=== PATIENT | female | born 1945 | race Caucasian/White ===

== ENCOUNTER 2016-05-31 14:43 | Emergency (ER) | payer MEDICARE ==
[~2016-05-31 14:43] MED LIST: HYDR-2666 PO
[2016-05-31] MEDS ORDERED: IV NORMAL SALINE 1000ML BAG 1,000 ML IV SCH (16:01)
--- NOTE | 2016-05-31 16:04 | EKG ---
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
[2016-05-31] MEDS ORDERED: MORPHINE SULFATE 4 MG/ML DISP.SYRIN. IV ONE (16:15)
--- NOTE | 2016-05-31 16:26 | RAD ---
Chest, 2 views, 05/31/2016: History: Chest pain and cough Comparison is made to a study from 02/23/2017. The heart size and pulmonary vascularity are normal. There is a calcified granuloma in the right lung. No acute infiltrates are seen. There is no evidence of pleural fluid. Mild spurring is present in the spine. IMPRESSION: No acute cardiopulmonary abnormality is detected.
[2016-05-31 16:35] LABS: BASO % 0 % (0-3); EOS % 0 % (0-3); HEMATOCRIT 39.2 % (36.0-47.0); HEMOGLOBIN 12.7 g/dL (12.0-15.5); LYMPH # 1.7 x10^3/uL (1.0-4.8); LYMPH % 46 % (24-48); MEAN CORPUSCULAR HEMOGLOBIN 27 pg (25-35); MEAN CORPUSCULAR HGB CONC 32 g/dL (31-37); MEAN CORPUSCULAR VOLUME 83 fL (79-100); MONO % 8 % (0-9); NEUT % 46 % (31-73); PLATELET COUNT 106 x10^3/uL (140-400); RED BLOOD COUNT 4.72 x10^6/uL (3.50-5.40); RED CELL DISTRIBUTION WIDTH 14.7 % (11.5-14.5); WHITE BLOOD COUNT 3.8 x10^3/uL (4.0-11.0)
[2016-05-31 16:51] LABS: CALCIUM 8.7 mg/dL (8.5-10.1); CREATININE 0.7 mg/dL (0.6-1.0); GFR 83.2; POTASSIUM 4.2 mmol/L (3.5-5.1)
[2016-05-31 17:00] VITALS: BP 124/60
[2016-05-31 17:24] LABS: OBC FLU VALID
[2016-05-31] MEDS ORDERED: OSELTAMIVIR 75 MG CAPSULE PO ONE (17:48)
--- NOTE | 2016-05-31 17:57 | PHYS DOC ---
Past Medical History Past Medical History: Arthritis Additional Past Medical Histor: DVT,RA Past Surgical History: Other Additional Past Surgical Histo: Macular hole repair 06/2013 Alcohol Use: None Drug Use: None Adult General Chief Complaint Chief Complaint: CHEST PAIN HPI HPI Patient is a 70 year old female who presents with cold symptoms. Patient reports she has had symptoms since Monday. She describes cough, chest congestion , general myalgias, rhinorrhea, chills, headache, decreased appetite. She also reports discomfort in her chest that she describes as "hard" pain that waxes and wanes. This pain is worse with coughing. She has tried oxycodone at home with insufficient relief. Of note, patient has history of RA for which she takes Enbrel. Review of Systems Review of Systems Constitutional: Chills Eyes: Denies change in visual acuity or eye pain HENT: Congestion, rhinorrhea Respiratory: Cough, congestion. Denies SOB Cardiovascular: Waxing and waning chest discomfort GI: Denies abdominal pain, nausea, vomiting, bloody stools or diarrhea : Denies dysuria or hematuria Musculoskeletal: General myalgias Integument: Denies rash or skin lesions Neurologic: Mild headache. Denies focal weakness or sensory changes Current Medications Current Medications Current Medications Medications (Trade) Dose Ordered Sig/Mel Start Time Stop Time Status Last Admin Dose Admin Morphine Sulfate 4 mg 1X ONCE 05/31/16 16:15 05/31/16 16:16 DC 05/31/16 16:22 4 MG Oseltamivir Phosphate (Tamiflu) 75 mg 1X ONCE 05/31/16 17:48 05/31/16 17:50 DC 05/31/16 17:48 75 MG Sodium Chloride (Iv Sodium Chloride 0.9% 1000ml Bag) 1,000 ml @ 1,000 mls/hr Q1H 05/31/16 16:01 05/31/16 17:00 DC 05/31/16 16:22 1,000 MLS/HR Allergies Allergies Allergies Coded Allergies Type Severity Reaction Last Updated Verified codeine Allergy Intermediate pain in neck "going up my head" 08/06/14 No warfarin Allergy Intermediate "rash" 08/06/14 No Physical Exam Physical Exam Constitutional: Well developed, well nourished, non-toxic appearance HENT: Normocephalic, atraumatic, bilateral external ears normal Eyes: EOMI, conjunctiva normal, no discharge Neck: Normal range of motion, no stridor Cardiovascular: Tachycardia, regular rhythm, no murmur Lungs & Thorax: Bilateral breath sounds clear to auscultation Abdomen: Bowel sounds normal, soft, non-distended, no TTP Skin: Hot to touch, dry, no erythema, no rash Extremities: No obvious deformity, no edema Neurologic: Alert and oriented X 3, no gross deficits noted Current Patient Data Vital Signs Vital Signs Date Time Temp Pulse Resp B/P Pulse Ox O2 Delivery O2 Flow Rate FiO2 05/31/16 17:00 84 124/60 96 Room Air 05/31/16 16:22 18 05/31/16 15:41 98.4 98.4 Lab Values Laboratory Tests Test 05/31/16 16:28 05/31/16 16:30 White Blood Count 3.8x10^3/uL (4.0-11.0) L Red Blood Count 4.72x10^6/uL (3.50-5.40) Hemoglobin 12.7g/dL (12.0-15.5) Hematocrit 39.2% (36.0-47.0) Mean Corpuscular Volume 83fL (79-100) Mean Corpuscular Hemoglobin 27pg (25-35) Mean Corpuscular Hemoglobin Concent 32g/dL (31-37) Red Cell Distribution Width 14.7% (11.5-14.5) H Platelet Count 106x10^3/uL (140-400) L Neutrophils (%) (Auto) 46% (31-73) Lymphocytes (%) (Auto) 46% (24-48) Monocytes (%) (Auto) 8% (0-9) Eosinophils (%) (Auto) 0% (0-3) Basophils (%) (Auto) 0% (0-3) Neutrophils # (Auto) 1.8x10^3uL (1.8-7.7) Lymphocytes # (Auto) 1.7x10^3/uL (1.0-4.8) Monocytes # (Auto) 0.3x10^3/uL (0.0-1.1) Eosinophils # (Auto) 0.0x10^3/uL (0.0-0.7) Basophils # (Auto) 0.0x10^3/uL (0.0-0.2) Sodium Level 136mmol/L (136-145) Potassium Level 4.2mmol/L (3.5-5.1) Chloride Level 98mmol/L (98-107) Carbon Dioxide Level 26mmol/L (21-32) Anion Gap 12 (6-14) Blood Urea Nitrogen 8mg/dL (7-20) Creatinine 0.7mg/dL (0.6-1.0) Estimated GFR (Cockcroft-Gault) 83.2 Glucose Level 112mg/dL (70-99) H Calcium Level 8.7mg/dL (8.5-10.1) Troponin I Quantitative < 0.017ng/mL (0.000-0.055) Influenza Type A Antigen Negative (NEGATIVE) Influenza Type B Antigen Positive (NEGATIVE) Laboratory Tests 05/31/16 16:28 Laboratory Tests 05/31/16 16:28 EKG EKG EKG (my read): sinus rhythm, rate 106, normal axis, nonspecific ST/T changes Radiology/Procedures Radiology/Procedures CXR: IMPRESSION: No acute cardiopulmonary abnormality is detected.] Course & Med Decision Making Course & Med Decision Making Pertinent Labs and Imaging studies reviewed. (See chart for details) Patient is 70-year-old female who presents with cold symptoms, including chest discomfort. Suspect chest discomfort due to costochondritis from frequent coughing. Will check EKG, chest x-ray, labs to evaluate. Pain meds, IV fluid bolus ordered. EKG and chest x-ray results as above. Blood work notable for mild leukopenia. Troponin within normal limits; given duration of symptoms, this is sufficient to rule out [place]. Patient is positive for influenza B, which explains patient's symptoms. Dose of Tamiflu ordered. I discussed with Dr. Kauffman (covering for Dr. Sanchez) given h/o RA and use of Enbrel; ok to send patient home with outpatient follow up. Discussed plan with patient, who is agreeable. Will discharge with prescription for Tamiflu, instructions for close follow-up, return precautions. Dragon Disclaimer Dragon Disclaimer This electronic medical record was generated, in whole or in part, using a voice recognition dictation system. Departure Departure Impression: Primary Impression: Influenza B Disposition: 01 HOME, SELF-CARE Condition: STABLE Referrals: LONDON SANCHEZ MD (PCP) Patient Instructions: Influenza, Adult Additional Instructions: Thank you for allowing us to provide care today in the Emergency Department. Take the provided medication as directed. Also continue to take the hydrocodone/ acetaminophen that you are already prescribed. Schedule a follow up appointment with your primary care doctor as soon as possible. Return promptly to the Emergency Department if you develop any new or concerning symptoms. Scripts Oseltamivir Phosphate (Tamiflu)75 Mg Capsule1 Cap PO BID #10 CAP Prov:JE HANSON MD 05/31/16 JE HANSON MD May 31, 2016 17:57
[2016-05-31] MEDS ORDERED: OSEL75CA PO (18:06)
== END 2016-05-31 18:37 | disposition home or self-care (01) ==
LOC: ER 14:43
DX: J10.1 Influenza due to other identified influenza virus with other respiratory manifestations (principal); M06.9 Rheumatoid arthritis, unspecified; Z86.718 Personal history of other venous thrombosis and embolism; Z88.5 Allergy status to narcotic agent; Z88.8 Allergy status to other drugs, medicaments and biological substances
CPT/HCPCS: 36415; 71020; 80048; 84484; 85027; 87804; 93005; 96361; 96374; 99285; J2270; J7030

== ENCOUNTER 2020-05-16 02:14 | Emergency (ER) | payer MEDICARE ==
[~2020-05-16] VITALS: Ht 172.7 cm; Wt 68.2 kg
[~2020-05-16 02:14] MED LIST changes: -HYDR-2666 PO; +HYDR-2761 PO; +OSEL75CA PO
--- NOTE | 2020-05-16 02:43 | EKG ---
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
[2020-05-16 02:47] LABS: BASO % 0 % (0-3); EOS % 0 % (0-3); HEMATOCRIT 34.8 % (36.0-47.0); HEMOGLOBIN 11.4 g/dL (12.0-15.5); LYMPH % 28 % (24-48); MEAN CORPUSCULAR HEMOGLOBIN 28 pg (25-35); MEAN CORPUSCULAR HGB CONC 33 g/dL (31-37); MEAN CORPUSCULAR VOLUME 84 fL (79-100); MONO # 0.5 x10^3/uL (0.0-1.1); MONO % 7 % (0-9); NEUT # 4.7 x10^3/uL (1.8-7.7); NEUT % 65 % (31-73); PLATELET COUNT 254 x10^3/uL (140-400); RED BLOOD COUNT 4.14 x10^6/uL (3.50-5.40); RED CELL DISTRIBUTION WIDTH 14.4 % (11.5-14.5); WHITE BLOOD COUNT 7.2 x10^3/uL (4.0-11.0)
[2020-05-16 03:02] LABS: CALCIUM 8.7 mg/dL (8.5-10.1); CREATININE 0.6 mg/dL (0.6-1.0); GFR 98.3; POTASSIUM 3.9 mmol/L (3.5-5.1)
[2020-05-16 03:09] LABS: ALBUMIN 3.3 g/dL (3.4-5.0); ALBUMIN/GLOBULIN RATIO 0.7 (1.0-1.7); MAGNESIUM 2.1 mg/dL (1.8-2.4); TOTAL BILIRUBIN 0.4 mg/dL (0.2-1.0); TOTAL PROTEIN 7.9 g/dL (6.4-8.2)
[2020-05-16] MEDS ORDERED: HYDROcodone/APAP 7.5/325MG 1 TAB TABLET PO ONE (03:45)
[2020-05-16] MEDS ORDERED: DEXAMETHASONE 4 MG TABLET PO ONE (03:45)
[2020-05-16 03:55] LABS: BARBITURATES NEG (NEG); BENZODIAZEPINES NEG (NEG); CANNABINOIDS NEG (NEG); COCAINE NEG (NEG); METHADONE NEG (NEG); OPIATES POS (NEG); PHENCYCLIDINE NEG (NEG)
[2020-05-16 03:59] LABS: AMPHETAMINE/METHAMPHETAMINE NEG (NEG)
--- NOTE | 2020-05-16 04:10 | RAD ---
Chest AP portable at 0233: Reason for examination: Chest pain. Leg swelling and pain. The heart size is normal. Mediastinum is unremarkable. Lung arguelles are clear except for calcified gra nuloma in the right lower lung field laterally. No acute bony abnormalities are seen. Impression: No acute cardiopulmonary disease. Left Lower Extremity Venous Doppler: Reason for examination: Left lower extremity pain and swelling. The left lower extremity venous system was evaluated from the common femoral and greater saphenous ve ins distally to the calf veins with grayscale imaging, color-flow imaging and spectral analysis. There is normal blood flow without deep venous thrombosis. There is normal response of the venous sys tems to compression and augmentation. Note is made of a fluid collection in the popliteal fossa consistent with a Prado's cyst measuring 2. 2 x 3.4 x 0.9 cm in greatest dimensions. Impression: No deep venous thrombosis in the left lower extremity venous system. Fluid collection consistent with a Prado's cyst in the popliteal fossa. Electronically signed by: Milly Garrison MD (05/16/2020 4:08 AM) ES
--- NOTE | 2020-05-16 04:12 | PHYS DOC ---
Past Medical History Past Medical History: Arthritis Additional Past Medical Histor: DVT,RA Past Surgical History: Other Additional Past Surgical Histo: Macular hole repair 06/2013 Smoking Status: Current Some Day Smoker Alcohol Use: None Drug Use: None General Adult EDM: Chief Complaint: CHEST PAIN HPI: HPI: 74-year-old female past medical history of rheumatoid arthritis on Enbrel, presents the ED with complaints of joint pain in her left elbow, neck, left knee with left lower extremity swelling, stating the last time she had a rheumatoid arthritis flareup she was prescribed a prednisone taper. Took hydrocodone at 11 PM for the pain. Patient states she has had this joint pain for months and is waxing and waning given her RA flareups. Review of Systems: Review of Systems: Constitutional: Well developed, well nourished, no acute distress, non-toxic appearance. HENT: Normocephalic, atraumatic, Eyes: EOMI, conjunctiva normal, no discharge. Neck: Normal range of motion, supple, Cardiovascular: S1/2 present, regular rhythm Lungs & Thorax: Speaking in full sentences, bilateral equal chest rise, no tach ypnea or increased work of breathing Abdomen: soft, no tenderness, Skin: Warm, dry, no erythema, no rash. [] Back: No tenderness, no CVA tenderness. [] Extremities: No cyanosis or bone tenderness Neurologic: Alert and oriented X 3, normal motor function, normal sensory function, no focal deficits noted. [] Psychologic: Affect normal, judgement normal, mood normal. [] Heart Score: C/O Chest Pain: No Risk Factors: Risk Factors: DM, Current or recent (<one month) smoker, HTN, HLP, family history of CAD, obesity. Risk Scores: Score 0 - 3: 2.5% MACE over next 6 weeks - Discharge Home Score 4 - 6: 20.3% MACE over next 6 weeks - Admit for Clinical Observation Score 7 - 10: 72.7% MACE over next 6 weeks - Early Invasive Strategies Current Medications: Current Medications Medications (Trade) Dose Ordered Sig/Mel Start Time Stop Time Status Last Admin Dose Admin Acetaminophen/ Hydrocodone Bitart (Lortab 7.5/325) 1 tab 1X ONCE 05/16/20 03:45 05/16/20 03:46 DC 05/16/20 03:45 1 TAB Dexamethasone (Decadron) 10 mg ONCE ONCE 05/16/20 03:45 05/16/20 03:46 DC 05/16/20 03:45 10 MG Allergies: Allergies: Allergies Coded Allergies Type Severity Reaction Last Updated Verified codeine Allergy Intermediate pain in neck "going up my head" 08/06/14 No warfarin Allergy Intermediate "rash" 08/06/14 No Physical Exam: PE: Constitutional: Well developed, well nourished, no acute distress, non-toxic appearance. HENT: Normocephalic, atraumatic, Eyes: EOMI, conjunctiva normal, no discharge. Neck: Normal range of motion, supple, Cardiovascular: S1/2 present, regular rhythm Lungs & Thorax: Speaking in full sentences, bilateral equal chest rise, no tachypnea or increased work of breathing Abdomen: soft, no tenderness, Skin: Warm, dry, no erythema, no rash. [] Back: No tenderness, no CVA tenderness. [] Extremities: No tenderness, no cyanosis, no lower extremity edema Neurologic: Alert and oriented X 3, normal motor function, normal sensory function, no focal deficits noted. [] Psychologic: Affect normal, judgement normal, mood normal. [] Current Patient Data: Labs: Laboratory Tests Test 05/16/20 02:38 05/16/20 03:40 White Blood Count 7.2 x10^3/uL (4.0-11.0) Red Blood Count 4.14 x10^6/uL (3.50-5.40) Hemoglobin 11.4 g/dL (12.0-15.5) L Hematocrit 34.8 % (36.0-47.0) L Mean Corpuscular Volume 84 fL (79-100) Mean Corpuscular Hemoglobin 28 pg (25-35) Mean Corpuscular Hemoglobin Concent 33 g/dL (31-37) Red Cell Distribution Width 14.4 % (11.5-14.5) Platelet Count 254 x10^3/uL (140-400) Neutrophils (%) (Auto) 65 % (31-73) Lymphocytes (%) (Auto) 28 % (24-48) Monocytes (%) (Auto) 7 % (0-9) Eosinophils (%) (Auto) 0 % (0-3) Basophils (%) (Auto) 0 % (0-3) Neutrophils # (Auto) 4.7 x10^3/uL (1.8-7.7) Lymphocytes # (Auto) 2.0 x10^3/uL (1.0-4.8) Monocytes # (Auto) 0.5 x10^3/uL (0.0-1.1) Eosinophils # (Auto) 0.0 x10^3/uL (0.0-0.7) Basophils # (Auto) 0.0 x10^3/uL (0.0-0.2) Sodium Level 135 mmol/L (136-145) L Potassium Level 3.9 mmol/L (3.5-5.1) Chloride Level 100 mmol/L (98-107) Carbon Dioxide Level 28 mmol/L (21-32) Anion Gap 7 (6-14) Blood Urea Nitrogen 7 mg/dL (7-20) Creatinine 0.6 mg/dL (0.6-1.0) Estimated GFR (Cockcroft-Gault) 98.3 BUN/Creatinine Ratio 12 (6-20) Glucose Level 122 mg/dL (70-99) H Calcium Level 8.7 mg/dL (8.5-10.1) Magnesium Level 2.1 mg/dL (1.8-2.4) Total Bilirubin 0.4 mg/dL (0.2-1.0) Aspartate Amino Transferase (AST) 14 U/L (15-37) L Alanine Aminotransferase (ALT) 19 U/L (14-59) Alkaline Phosphatase 95 U/L (46-116) Troponin I Quantitative < 0.017 ng/mL (0.000-0.055) HY-Swn-F-Type Natriuretic Peptide 55 pg/mL (0-124) Total Protein 7.9 g/dL (6.4-8.2) Albumin 3.3 g/dL (3.4-5.0) L Albumin/Globulin Ratio 0.7 (1.0-1.7) L Lipase 81 U/L (73-393) Urine Opiates Screen Pos (NEG) Urine Methadone Screen Neg (NEG) Urine Barbiturates Neg (NEG) Urine Phencyclidine Screen Neg (NEG) Urine Amphetamine/Methamphetamine Neg (NEG) Urine Benzodiazepines Screen Neg (NEG) Urine Cocaine Screen Neg (NEG) Urine Cannabinoids Screen Neg (NEG) Urine Ethyl Alcohol Neg (NEG) Laboratory Tests 05/16/20 02:38 Laboratory Tests 05/16/20 02:38 Vital Signs: Vital Signs Date Time Temp Pulse Resp B/P (MAP) Pulse Ox O2 Delivery O2 Flow Rate FiO2 05/16/20 04:00 86 161/73 (102) 100 Room Air 05/16/20 02:30 98.2 16 98.2 EKG: EKG: Sinus rhythm at 89 beats per minute, no axis deviation, normal intervals, no T wave inversions, no ST elevations or ST depressions Radiology/Procedures: Radiology/Procedures: IMAGING REPORT Signed PATIENT: EMEKA BROWN ACCOUNT: [id number] : 1945 LOCATION: ER AGE: 74 SEX: F EXAM STATUS: REG ER ORD. PHYSICIAN: SALMA ROTHMAN DO REASON: leg swelling/pain r/o dvt PROCEDURE: VENOUS LOWER EXTREMITY LEFT Chest AP portable at 0233: Reason for examination: Chest pain. Leg swelling and pain. The heart size is normal. Mediastinum is unremarkable. Lung arguelles are clear except for calcified granuloma in the right lower lung field laterally. No acute bony abnormalities are seen. Impression: No acute cardiopulmonary disease. Left Lower Extremity Venous Doppler: Reason for examination: Left lower extremity pain and swelling. The left lower extremity venous system was evaluated from the common femoral and greater saphenous veins distally to the calf veins with grayscale imaging, color-flow imaging and spectral analysis. There is normal blood flow without deep venous thrombosis. There is normal response of the venous systems to compression and augmentation. Note is made of a fluid collection in the popliteal fossa consistent with a Prado's cyst measuring 2.2 x 3.4 x 0.9 cm in greatest dimensions. Impression: No deep venous thrombosis in the left lower extremity venous system. Fluid collection consistent with a Prado's cyst in the popliteal fossa. Electronically signed by: Arnel Molina MD (05/16/2020 4:08 AM) [facility] DICTATED and SIGNED BY: ARNEL MOLINA MD DATE: 05/16/20 [id number] IMAGING REPORT Signed PATIENT: EMEKA BROWN ACCOUNT: [id number] : 1945 LOCATION: ER AGE: 74 SEX: F EXAM STATUS: REG ER ORD. PHYSICIAN: SALMA ROTHMAN DO REASON: cp PROCEDURE: CHEST AP ONLY Chest AP portable at 0233: Reason for examination: Chest pain. Leg swelling and pain. The heart size is normal. Mediastinum is unremarkable. Lung arguelles are clear except for calcified granuloma in the right lower lung field laterally. No acute bony abnormalities are seen. Impression: No acute cardiopulmonary disease. Left Lower Extremity Venous Doppler: Reason for examination: Left lower extremity pain and swelling. The left lower extremity venous system was evaluated from the common femoral and greater saphenous veins distally to the calf veins with grayscale imaging, color-flow imaging and spectral analysis. There is normal blood flow without deep venous thrombosis. There is normal response of the venous systems to compression and augmentation. Note is made of a fluid collection in the popliteal fossa consistent with a Prado's cyst measuring 2.2 x 3.4 x 0.9 cm in greatest dimensions. Impression: No deep venous thrombosis in the left lower extremity venous system. Fluid collection consistent with a Prado's cyst in the popliteal fossa. Electronically signed by: Arnel Molina MD (05/16/2020 4:08 AM) [facility] DICTATED and SIGNED BY: ARNEL MOLINA MD DATE: 05/16/20 [id number] 0 Course & Med Decision Making: Course & Med Decision Making Pertinent Labs and Imaging studies reviewed. (See chart for details) Uncertain for rheumatoid arthritis flareup in the setting of left lower extremity edema, Prado's cyst on DVT study. Will prescribe steroid taper and recommend outpatient rheumatology evaluation. Will discharge home with strict ED return precautions were given for worsening leg swelling, neurologic deficits, fever or joint swelling. Encouraged urgent outpatient follow-up with PMD and rheumatology. Life-threatening processes were considered but are low suspicion at this time, given history, physical exam and ED workup. Pt was educated on all prescription medications and adverse effects. All patient's questions were answered and pt was stable at time of discharge. Life/limb-threatening differential includes but is not limited to, avascular necrosis, septic arthritis, malignancy, compartment syndrome, fracture/ligamentous injury/overuse, decompression sickness, seronegative spondyloarthropathies, trauma including dislocation/fracture, Lyme disease, lupus, arthritis differentials, gout/pseudogout or decompression sickness. I spoken with the patient and her caregivers. I explained the patient's condition, diagnoses and treatment plan based on the information available to me at this time. I have answered the patient and her caregiver's questions and addressed any concerns. The patient and her caregivers have a good understanding of patient's diagnosis, condition and treatment plan as can be expected at this point. Vital signs have been stable. Patient's condition is stable and appropriate for discharge from the emergency department. Patient will pursue further outpatient evaluation with primary care physician or other designated or consulting physician as outlined in the discharge instructions. The patient and/or caregivers are agreeable to this plan of care and follow-up instructions have been explained in detail. The patient and/or caregivers have received these instructions in written form and have expressed an understanding of the discharge instructions. The patient and/or caregivers are aware that any significant change of condition or worsening of symptoms should prompt immediate return to this or the closest emergency department or call to 242. Lashawn Disclaimer: Lashawn Disclaimer: This electronic medical record was generated, in whole or in part, using a voice recognition dictation system. Departure Departure Impression: Primary Impression: Synovial cyst of popliteal space [Prado], left knee Additional Impression: Rheumatoid arthritis flare Disposition: 01 DC HOME SELF CARE/HOMELESS Condition: STABLE Referrals: RAFITA PIERCE MD (PCP) Patient Instructions: Prado's Cyst, Rheumatoid Arthritis Additional Instructions: Rheumatology Corbin Us MD [employer] [address] [address] EMERGENCY DEPARTMENT GENERAL DISCHARGE INSTRUCTIONS Thank you for coming to [facility] Emergency Department (ED) today and trusting us with you care. We trust that you had a positive experience in our Emergency Department. If you wish to speak to the department management, you may call the Director at [phone]. YOUR FOLLOW UP INSTRUCTIONS ARE FOLLOWS: 1. Do you have a private Doctor? If you do not have a private doctor, please ask for a resource list of physicians or clinics that may be able to assist you with follow up care. 2. The Emergency Physicain has interpreted your x-rays. The X-Ray specialist will also review them. If there is a change in the findings, you will be notified in 48 hours when at all possible. 3. A lab test or culture has been done, your results will be reviewed and you will be notified if you need a change in treatment. ADDITIONAL INSTRUCTIONS AND INFORMATION: 1. Your care today has been supervised by a physician who is specially trained in emergency care. Many problems require more than one evaluation for a complete diagnosis and treatment. We recommend that you schedule your follow up appointment as recommended to ensure complete treatment of you illness or injury. If you are unable to obtain follow up care and continue to have a problem, or if your condition worsens, we recommend that you return to the ED. 2. We are not able to safely determine your condition over the phone nor are we able to give sound medical advice over the phone. For these safety reasons, if you call for medical advice we will ask you to come to the ED for further evaluation. 3. If you have any questions regarding these discharge instructions please call the ED at [phone]. SAFETY INFORMATION: In the interest of safety, wellness, and injury prevention; we encourage you to wear your sealbelt, if you smoke; quite smoking, and we encourage family to use a protective helmet for bicycling and other sporting events that present an increased risk for head injury. IF YOUR SYMPTOMS WORSEN OR NEW SYMPTOMS DEVELOP, OR YOU HAVE CONCERNS ABOUT YOUR CONDITION; OR IF YOUR CONDITION WORSENS WHILE YOU ARE WAITING FOR YOUR FOLLOW UP APPOINTMENT; EITHER CONTACT YOUR PRIMARY CARE DOCTOR, THE PHYSICIAN WHOSE NAME AND NUMBER YOU WERE GIVEN, OR RETURN TO THE ED IMMEDIATELY. Scripts Prednisone (PREDNISONE) 50 Mg Tablet 1 TAB PO DAILY for 5 Days, #5 TAB Prov: SALMA ROTHMAN DO 05/16/20 SALMA ROTHMAN DO May 16, 2020 04:11
[2020-05-16] MEDS ORDERED: PRED50TA PO (04:26)
[2020-05-16 04:30] VITALS: BP 113/58
[2020-05-16] MEDS ORDERED: KETOROLAC 15 MG/ML VIAL. IVP ONE (04:30)
== END 2020-05-16 04:52 | disposition home or self-care (01) ==
LOC: ER 02:14
DX: M71.22 Synovial cyst of popliteal space [Baker], left knee (principal); M25.522 Pain in left elbow; M54.2 Cervicalgia; R07.89 Other chest pain; M06.9 Rheumatoid arthritis, unspecified; F17.200 Nicotine dependence, unspecified, uncomplicated; Z86.718 Personal history of other venous thrombosis and embolism; Z88.5 Allergy status to narcotic agent; Z88.8 Allergy status to other drugs, medicaments and biological substances
CPT/HCPCS: 36415; 71045; 80053; 80307; 83690; 83735; 83880; 84484; 85025; 93005; 93971; 96374; 99284; J1885